=== PATIENT | female | born 1985 | race Caucasian/White ===

== ENCOUNTER 2016-05-12 11:20 | Emergency (ER) | payer OTHER ==
[2016-05-12 11:32] VITALS: BP 142/57; PULSE 96; TEMP 98.1; BMI 33.2
[2016-05-12] MEDS ORDERED: ALBUTEROL SO4 2.5/IPRATROPIUM 0.5 INH SOL 3 ML VIAL.NEB. NEB ONE (13:26)
--- NOTE | 2016-05-12 13:26 | PDOC ---
History of Present Illness - General Chief Complaint: Asthma Stated Complaint: SOB (ASTHMA) Time Seen by Provider: 05/12/16 12:46 History Source: Patient Exam Limitations: No Limitations - History of Present Illness Initial Comments: 05/12/16 13:44 Patient came to emergency department for another evaluation of her chronic cough , runny nose, postnasal drainage. Has been using her albuterol inhaler frequently over the past few days. Has seen her physician on multiple occasions and has been told is a ALLERGIC problem. has used multiple different types of hfxf-zns-jaqvkyo medications and prescription antihistamines with no relief. Patient denies fever, denies any purulent drainage from nose, or phlegm production with cough. has appointment with an ear nose and throat doctor in 2 weeks. has multiple animals at home including 3 cats, multiple birds, and a dog but has never had a problem with ALLERGIES for those. Timing/Duration: reports: just prior to arrival Severity: reports: moderate Possible Cause: Yes: frequent episodes Modifying Factors: improves with: activity, albuterol inhaler Associated Symptoms: reports: cough, shortness of breath, wheezing. denies: headache Past History - Travel Traveled outside of the country in the last 30 days: No Close contact w/someone who was outside of country & ill: No - Past Medical History Allergies/Adverse Reactions: Allergies Allergy/AdvReac Type Severity Reaction Status Date / Time beclomethasone dipropionate Allergy Intermediate Rash Verified 05/12/16 11:31 [From [facility]] Home Medications: Ambulatory Orders Albuterol Sulfate [Proventil HFA Inhaler -] 1 - 2 inh PO QID #1 inhaler Prednisone [Deltasone -] 20 mg PO BID #10 tablet 05/12/16 Asthma: Yes Cancer: No Cardiac Disorders: No Diabetes: No HTN: No Seizures: No Thyroid Disease: No - Family Disease History Family Disease History: Diabetes: Mother (htn), Heart Disease: Mother, Respiratory: Mother, Other: Father (htn), Mother - Psycho/Social/Smoking Cessation Hx Anxiety: No Suicidal Ideation: No Smoking History: Never smoked Have you smoked in the past 12 months: No Number of Cigarettes Smoked Daily: 0 Information on smoking cessation initiated: No Hx Alcohol Use: No Drug/Substance Use Hx: No Substance Use Type: None Hx Substance Use Treatment: No Review of Systems - Review of Systems Able to Perform ROS?: Yes Is the patient limited Dutch proficient: Yes Constitutional: Yes: Symptoms Reported, See HPI, Fever, Malaise Respiratory: Yes: Symptoms reported, See HPI, Cough, Shortness of Breath, Wheezing ABD/GI: No: Symptoms Reported : No: Symptoms Reported Musculoskeletal: No: Symptoms Reported Integumentary: No: Symptoms Reported Hematologic/Lymphatic: Yes: See HPI. No: Symptoms Reported All Other Systems: Reviewed and Negative *Physical Exam - Vital Signs Last Vital Signs Temp Pulse Resp BP Pulse Ox 98.1 F 96 H 18 142/57 96 05/12/16 11:28 05/12/16 11:28 05/12/16 11:28 05/12/16 11:28 05/12/16 11:28 - Physical Exam General Appearance: Yes: Nourished, Appropriately Dressed, Apparent Distress, Mild Distress, Moderate Distress HEENT: positive: KENNETH, TMs Normal, Pharynx Normal (no redness, swelling or exudate), Rhinorrhea (clear). negative: Sinus Tenderness, TM Erythema Neck: positive: Supple. negative: Tender, Lymphadenopathy (R), Lymphadenopathy (L) Respiratory/Chest: positive: Wheezing (tight inspiratory wheezing noted throughout). negative: Lungs Clear, Normal Breath Sounds Extremity: positive: Normal Capillary Refill, Normal Inspection, Normal Range of Motion Integumentary: positive: Normal Color, Dry, Warm, Pale Neurologic: positive: uniform maker II-XII NML intact, Fully Oriented, Alert, Normal Mood/ Affect, Normal Response, Motor Strength 5/5 Progress Note - Progress Note Progress Note: Chronic ALLERGIC rhinitis, will treat with short course of prednisone, encourage continue albuterol nebs and follow-up with ear nose and throat for extensive ALLERGY testing as patient has multiple potential ALLERGIC triggers including animals, smoke, and mold issues at her apartment. Medical Decision Making - Medical Decision Making 05/12/16 14:52 Improved after Ingrid will re-prescribe Proventil inhaler, five-day course of prednisone, and have follow-up with ENT and possible pulmonology consult 05/12/16 14:53 *DC/Admit/Observation/Transfer Diagnosis at time of Disposition: Allergic rhinitis Qualifiers: Allergic rhinitis seasonality: unspecified seasonality Allergic rhinitis trigger: unspecified Qualified Code(s): J30.9 - Allergic rhinitis, unspecified - Discharge Dispostion Disposition: HOME Condition at time of disposition: Stable Admit: No - Prescriptions Prescriptions: Prednisone [Deltasone -] 20 mg PO BID #10 tablet Albuterol Sulfate [Proventil HFA Inhaler -] 1 - 2 inh PO QID #1 inhaler - Referrals Referrals: Aleida Louis MD [Primary Care Provider] - Steve Hernandez MD [Staff Physician] - - Patient Instructions Printed Discharge Instructions: DI for Allergic Rhinitis Additional Instructions: Rest, drink lots of fluids: Teas, water, soups Saltwater gargles. Consider humidifier in room at night Steamy showers/seem to face break up mucus Avoid contact with allergens, exposure to pollens, close windows on a windy day Lots of handwashing and good hygiene Continue encm-yzh-epdyimk medications for symptomatic relief- may use allergic eyedrops for itching I Continue antihistamines daily until pollen season is over; Zyrtec, Claritin, Yesica during the daytime and Benadryl at nighttime as will make sleepy Tylenol or Motrin for fever and pain Followup with private physician in one to 2 days as needed Consider following up with an roll coverer/embedded processor for skin testing and possible allergy shots Return to emergency department for worsened symptoms, fevers, dehydration - Post Discharge Activity Work/School Note: Back to Work
[2016-05-12] MEDS ORDERED: predniSONE 20 MG TABLET (UD) PO ONE (14:50)
[2016-05-12] MEDS ORDERED: predniSONE 20 MG TABLET (UD) ONE (15:02)
== END 2016-05-12 15:30 | disposition home or self-care (01) ==
LOC: JERFT 11:20
PROC: 3E0F7GC Introduction of Other Therapeutic Substance into Respiratory Tract, Via Natural or Artificial Opening (ICD-10-PCS; principal; 2016-05-12)
DX: J30.9 Allergic rhinitis, unspecified (principal)
CPT/HCPCS: 84703; 99281-25